=== PATIENT | female | born 1965 | race Caucasian/White ===

== ENCOUNTER 2017-11-19 09:52 | Emergency (ER) | payer OTHER ==
[~2017-11-19] VITALS: Ht 162.6 cm; Wt 56.2 kg
--- NOTE | 2017-11-19 10:10 | NUR ---
DR. PARSONS TALKED TO DR. MORENO REGARDING THE PT.DR. MORENO WILL SEE THE PT IMMEDIALY IN HIS OFFICE.
--- NOTE | 2017-11-19 10:19 | NUR ---
Patient discharged to home in stable conditon. Written and verbal after care instructions given. Patient verbalizes understanding of instructions.Pt understand that she should immediately follow up with dr. cortez, dr. cortez office info provided for pt.
== END 2017-11-19 10:21 | disposition home or self-care (01) ==
LOC: ER 09:52
DX: H57.8 Other specified disorders of eye and adnexa (principal)
CPT/HCPCS: A4663

== ENCOUNTER 2018-11-19 22:07 | Emergency (ER) | payer OTHER ==
[~2018-11-19] VITALS: Ht 165.1 cm; Wt 54.4 kg
--- NOTE | 2018-11-19 22:49 | NUR ---
Dr. Welch at bedside for MSE.
[2018-11-19 23:12] LABS: BASOPHILS # (AUTO) 0.1 K/uL (0.0-8.0); BASOPHILS % (AUTO) 1.2 % (0.0-2.0); EOSINOPHILS # (AUTO) 0.2 K/uL (0.0-0.7); EOSINOPHILS % (AUTO) 3.1 % (0.0-7.0); HEMATOCRIT 38.6 % (31.2-41.9); HEMOGLOBIN 13.1 g/dL (10.9-14.3); LYMPHOCYTES % (AUTO) 30.3 % (20.5-51.5); MEAN CORPUSCULAR HEMOGLOBIN 29.8 uug (24.7-32.8); MEAN CORPUSCULAR HGB CONC 34 g/dL (32.3-35.6); MONOCYTES # (AUTO) 0.4 K/uL (2.0-10.0); MONOCYTES % (AUTO) 5.9 % (0.0-11.0); NEUTROPHILS # (AUTO) 3.9 K/uL (1.8-8.9); NEUTROPHILS % (AUTO) 59.5 % (38.5-71.5); PLATELET COUNT (AUTO) 206 K/uL (179-408); RED BLOOD CELL COUNT(AUTO) 4.38 MIL/uL (3.63-4.92); WHITE BLOOD COUNT (AUTO) 6.6 K/uL (3.8-11.8)
[2018-11-19 23:16] LABS: CREATININE 0.7 mg/dL (0.6-1.3); POTASSIUM 3.7 mmol/L (3.5-5.1)
[2018-11-19] MEDS ORDERED: SWABABLE VALVE TRANSFER SET EA MC ONE (23:26)
[2018-11-19] MEDS ORDERED: IV NORMAL SALINE 250 ML IV ONE (23:26)
[2018-11-19] MEDS ORDERED: NORMAL SALINE FLUSH 10 ML DISP.SYRIN ONE (23:26)
[2018-11-19] MEDS ORDERED: IOHEXOL 350 100 ML INFUS..BTL ONE (23:26)
[2018-11-19 23:27] LABS: ETHANOL < 3 MG/DL (0-0)
--- NOTE | 2018-11-19 23:35 | NUR ---
Pt out of ER for CT.
--- NOTE | 2018-11-20 00:10 | NUR ---
Pt back to ER from CT.
[2018-11-20] MEDS ORDERED: KETOROLAC TROMETHAMINE 30 MG INJ IVP ONE (01:45)
[2018-11-20] MEDS ORDERED: KETOROLAC TROMETHAMINE 30 MG INJ ONE (01:47)
[2018-11-20] MEDS ORDERED: AMOXicillin 250 MG CAPSULE ONE (01:52)
--- NOTE | 2018-11-20 01:55 | NUR ---
Patient discharged to home in stable conditon. Written and verbal after care instructions given. Patient verbalizes understanding of instructions. Pt ambulated out of ER with steady gait, no acute signs of distress, VSS, all belongings taken, IV site discontinued.
[2018-11-20 01:56] VITALS: BP 120/80
[2018-11-20] MEDS ORDERED: AMOXicillin 250 MG CAPSULE PO ONE (02:00)
== END 2018-11-20 01:57 | disposition home or self-care (01) ==
LOC: ER 22:07
DX: R42 Dizziness and giddiness (principal); K08.89 Other specified disorders of teeth and supporting structures
CPT/HCPCS: 36415; 70450; 70496; 70498; 80048; 82962; 85025; 85730; 93005; 96374; 99284; G0480; J1885; Q9967; A4663; J3490; J7050

== ENCOUNTER 2019-02-04 17:18 | Emergency (ER) | payer OTHER ==
[~2019-02-04] VITALS: Ht 160 cm; Wt 54.4 kg
[2019-02-04] MEDS ORDERED: MAG HYDROX/AL HYDROX/SIMETH 30 ML LIQUID UDC PO ONE (18:00)
[2019-02-04] MEDS ORDERED: LIDOCAINE VISCUS 2% 15 ML UDC MM ONE (18:00)
[2019-02-04] MEDS ORDERED: FAMOTIDINE. 20 MG/2 ML VIAL IV ONE (18:00)
[2019-02-04] MEDS ORDERED: MAG HYDROX/AL HYDROX/SIMETH 30 ML LIQUID UDC ONE (18:04)
[2019-02-04] MEDS ORDERED: LIDOCAINE VISCUS 2% 15 ML UDC ONE (18:04)
[2019-02-04] MEDS ORDERED: FAMOTIDINE 20 MG TABLET ONE (18:04)
[2019-02-04 18:09] LABS: BASOPHILS # (AUTO) 0.1 K/uL (0.0-8.0); BASOPHILS % (AUTO) 1.3 % (0.0-2.0); EOSINOPHILS # (AUTO) 0.1 K/uL (0.0-0.7); HEMATOCRIT 37.7 % (31.2-41.9); HEMOGLOBIN 12.7 g/dL (10.9-14.3); LYMPHOCYTES # (AUTO) 1.7 K/uL (20.0-40.0); LYMPHOCYTES % (AUTO) 29.7 % (20.5-51.5); MEAN CORPUSCULAR HEMOGLOBIN 30.2 uug (24.7-32.8); MEAN CORPUSCULAR HGB CONC 34 g/dL (32.3-35.6); MEAN CORPUSCULAR VOLUME 89.6 fL (75.5-95.3); MONOCYTES # (AUTO) 0.6 K/uL (2.0-10.0); MONOCYTES % (AUTO) 9.7 % (0.0-11.0); NEUTROPHILS # (AUTO) 3.3 K/uL (1.8-8.9); NEUTROPHILS % (AUTO) 57.3 % (38.5-71.5); PLATELET COUNT (AUTO) 232 K/uL (179-408); WHITE BLOOD COUNT (AUTO) 5.7 K/uL (3.8-11.8)
--- NOTE | 2019-02-04 18:20 | NUR ---
CT scanner is MD alberta notified. Dr Pena cancelled the CT order for this patient & plan to discharge the patient home without the CT scan.
--- NOTE | 2019-02-04 18:21 | NUR ---
La chiang in ED - 02/04/19 at 1824 by JANET PER SUKHDEEP CORREA, PT IS LEAKING FLUID FROM FIRST PEG SITE.
[2019-02-04 18:23] LABS: BILIRUBIN,DIRECT 0.1 mg/dL (0.0-0.2); BILIRUBIN,TOTAL 0.4 mg/dL (0.2-1.0); CREATININE 0.6 mg/dL (0.6-1.3); POTASSIUM 4.2 mmol/L (3.5-5.1); TOTAL PROTEIN, SERUM 7.2 g/dL (6.4-8.2)
--- NOTE | 2019-02-04 18:24 | NUR ---
Patient discharged to home in stable conditon. Written and verbal after care instructions given to patient. Patient verbalizes understanding of instructions. Patient left ER with brisk steady gait.
[2019-02-04] MEDS ORDERED: FAMOTIDINE 20 MG TABLET PO ONE (18:30)
== END 2019-02-04 18:25 | disposition home or self-care (01) ==
LOC: ER 17:18
DX: R19.7 Diarrhea, unspecified (principal)
CPT/HCPCS: 36415; 83690; 85025; A4663

== ENCOUNTER 2019-09-11 08:35 | Emergency (ER) | payer OTHER ==
[~2019-09-11] VITALS: Ht 160 cm; Wt 56.7 kg
--- NOTE | 2019-09-11 08:52 | NUR ---
Patient ambulated with stable gait. A/Ox4. Speech is clear, speaks in complete sentences. Maltese speaking only but daughter at bedside translating. Patient came for c/o epigastric pain since last night. Patient reports taking a total of 2000mg of acetaminophen in one sitting d/t her pain and discomfort.
--- NOTE | 2019-09-11 08:54 | NUR ---
ERMD at bedside for MSE
[2019-09-11] MEDS ORDERED: KETOROLAC TROMETHAMINE 30 MG INJ IVP ONE (09:00)
[2019-09-11] MEDS ORDERED: IV NORMAL SALINE 1000 ML BAG IV ONE (09:00)
[2019-09-11] MEDS ORDERED: ONDANSETRON 4 MG/2 ML VIAL IV ONE (09:00)
[2019-09-11] MEDS ORDERED: KETOROLAC TROMETHAMINE 30 MG INJ ONE (09:10)
[2019-09-11] MEDS ORDERED: ONDANSETRON 4 MG/2 ML VIAL ONE (09:10)
[2019-09-11 09:20] LABS: BASOPHILS # (AUTO) 0.1 K/uL (0.0-8.0); BASOPHILS % (AUTO) 1.4 % (0.0-2.0); EOSINOPHILS # (AUTO) 0.1 K/uL (0.0-0.7); EOSINOPHILS % (AUTO) 1.3 % (0.0-7.0); HEMATOCRIT 39.8 % (31.2-41.9); HEMOGLOBIN 13.4 g/dL (10.9-14.3); LYMPHOCYTES # (AUTO) 1.3 K/uL (20.0-40.0); LYMPHOCYTES % (AUTO) 26.7 % (20.5-51.5); MEAN CORPUSCULAR HEMOGLOBIN 30.6 uug (24.7-32.8); MEAN CORPUSCULAR HGB CONC 34 g/dL (32.3-35.6); MEAN CORPUSCULAR VOLUME 90.9 fL (75.5-95.3); MONOCYTES # (AUTO) 0.4 K/uL (2.0-10.0); MONOCYTES % (AUTO) 7.6 % (0.0-11.0); NEUTROPHILS # (AUTO) 3.2 K/uL (1.8-8.9); PLATELET COUNT (AUTO) 221 K/uL (179-408); RED BLOOD CELL COUNT(AUTO) 4.37 MIL/uL (3.63-4.92)
--- NOTE | 2019-09-11 09:23 | NUR ---
Liliam US tech, at bedside for scan
[2019-09-11 09:26] LABS: CREATININE 0.7 mg/dL (0.6-1.3); POTASSIUM 3.9 mmol/L (3.5-5.1)
[2019-09-11 09:32] LABS: BILIRUBIN,TOTAL 0.5 mg/dL (0.2-1.0); TOTAL PROTEIN, SERUM 7.2 g/dL (6.4-8.2)
[2019-09-11 09:35] LABS: BILIRUBIN,DIRECT 0.1 mg/dL (0.0-0.2)
--- NOTE | 2019-09-11 09:58 | NUR ---
Patient taken down to CT in stable condition.
[2019-09-11 10:08] LABS: *BILIRUBIN,URIN NEGATIVE (NEGATIVE); *BLOOD, URINE NEGATIVE (NEGATIVE); *CLARITY,URINE CLEAR (CLEAR); *COLOR,URINE LIGHT YELLOW (YELLOW); *KETONES,URINE NEGATIVE (NEGATIVE); *UROBILINOGEN,URINE 0.2 E.U./dl (NORMAL); LEUKOCYTE ESTERASE ,URINE NEGATIVE (NEGATIVE); NITRITE, URINE NEGATIVE (NEGATIVE); PH,URINE 6.5 (5.0-8.0); UGLUCOSE NEGATIVE (NEGATIVE)
[2019-09-11 11:15] VITALS: BP 118/77
--- NOTE | 2019-09-11 11:15 | NUR ---
IV removed. Catheter intact and site benign. Pressure and 4x4 gauze applied to site. No bleeding noted. Patient discharged to home in stable conditon. Written and verbal after care instructions given. Patient verbalizes understanding of instructions. Patient ambulated with stable gait.
== END 2019-09-11 11:16 | disposition home or self-care (01) ==
LOC: ER 08:35
DX: K52.9 Noninfective gastroenteritis and colitis, unspecified (principal)
CPT/HCPCS: 36415; 71045; 74176; 76705; 80048; 80076; 81001; 83690; 84484; 85025; 85730; 93005; 96361; 96374; 96375; 99285; G0480; J1885; J2405; 70030-TC; A4663; J7030

== ENCOUNTER 2020-08-01 15:58 | Emergency (ER) | payer OTHER ==
[~2020-08-01] VITALS: Ht 157.5 cm; Wt 54.4 kg
--- NOTE | 2020-08-01 16:24 | NUR ---
No Bed avail in Er, pt is being seen in the hallway by Dr Banegas.
--- NOTE | 2020-08-01 16:59 | NUR ---
Patient discharged to home in stable condition. Written and verbal after care instructions given. Patient verbalizes understanding of instructions. Stressed follow up or return to ER for worsening s/s.
[2020-08-01 17:00] VITALS: BP 122/58
== END 2020-08-01 17:01 | disposition home or self-care (01) ==
LOC: ER 16:00
DX: R51.9 Headache, unspecified (principal); G93.89 Other specified disorders of brain; Z86.73 Personal history of transient ischemic attack (TIA), and cerebral infarction without residual deficits; Z86.19 Personal history of other infectious and parasitic diseases
CPT/HCPCS: 70450; A4663

== ENCOUNTER 2020-10-14 12:24 | Emergency (ER) | payer BC, OTHER ==
[~2020-10-14] VITALS: Ht 160 cm; Wt 52.2 kg
[2020-10-14 13:10] LABS: ABG BASE EXCESS 0.6 mmol/L; ABG PCO2 34.9 mmHg (35.0-45.0); ABG PH 7.456 (7.350-7.450); ABG PO2 66.7 mmHg (75.0-100.0); ABG SITE LEFT RADIAL; ABG TOTAL HEMOGLOBIN 13.5 G/dL (12.0-16.0); COHb 1.4 % (0.5-1.5); MetHb 0.2 % (0.0-1.5); O2Hb 92.2 % (94.0-97.0)
[2020-10-14 13:13] LABS: BASOPHILS # (AUTO) 0.1 K/uL (0.0-8.0); BASOPHILS % (AUTO) 1.9 % (0.0-2.0); EOSINOPHILS % (AUTO) 0.3 % (0.0-7.0); HEMATOCRIT 39.3 % (31.2-41.9); HEMOGLOBIN 13.4 g/dL (10.9-14.3); LYMPHOCYTES # (AUTO) 0.6 K/uL (20.0-40.0); LYMPHOCYTES % (AUTO) 15.4 % (20.5-51.5); MEAN CORPUSCULAR HEMOGLOBIN 30.9 uug (24.7-32.8); MEAN CORPUSCULAR HGB CONC 34 g/dL (32.3-35.6); MEAN CORPUSCULAR VOLUME 90.8 fL (75.5-95.3); MONOCYTES # (AUTO) 0.4 K/uL (2.0-10.0); MONOCYTES % (AUTO) 11.2 % (0.0-11.0); NEUTROPHILS # (AUTO) 2.8 K/uL (1.8-8.9); NEUTROPHILS % (AUTO) 71.2 % (38.5-71.5); PLATELET COUNT (AUTO) 149 K/uL (179-408); RED BLOOD CELL COUNT(AUTO) 4.33 MIL/uL (3.63-4.92); WHITE BLOOD COUNT (AUTO) 3.9 K/uL (3.8-11.8)
[2020-10-14] MEDS ORDERED: CEFTRIAXONE 1 G in IV DEXTROSE 5% 50 ML IV ONE (13:15)
[2020-10-14] MEDS ORDERED: AZITHROMYCIN IV 500 MG in IV DEXTROSE 5% 250 ML IV ONE (13:15)
[2020-10-14 13:25] LABS: CREATININE 0.6 mg/dL (0.6-1.3); POTASSIUM 3.5 mmol/L (3.5-5.1)
[2020-10-14 13:25] LABS: *BILIRUBIN,URIN NEGATIVE (NEGATIVE); *BLOOD, URINE NEGATIVE (NEGATIVE); *CLARITY,URINE CLEAR (CLEAR); *COLOR,URINE LIGHT YELLOW (YELLOW); *KETONES,URINE NEGATIVE (NEGATIVE); *UROBILINOGEN,URINE 0.2 E.U./dl (NORMAL); LEUKOCYTE ESTERASE ,URINE NEGATIVE (NEGATIVE); NITRITE, URINE NEGATIVE (NEGATIVE); PH,URINE 6.5 (5.0-8.0); UGLUCOSE NEGATIVE (NEGATIVE)
[2020-10-14 13:45] LABS: BILIRUBIN,TOTAL 0.4 mg/dL (0.2-1.0); TOTAL PROTEIN, SERUM 7.2 g/dL (6.4-8.2)
[2020-10-14] MEDS ORDERED: CEFTRIAXONE /D5W 50ML IVPB **ER PYXIS IV ONE (14:19)
[2020-10-14] MEDS ORDERED: AZITHROMYCIN 500MG/ D5W 250ML IVPB **ER PYXIS ONLY IV ONE (14:20)
[2020-10-14] MEDS ORDERED: DOXY-226 PO (15:48)
[2020-10-14] MEDS ORDERED: DEXA6TAB PO (15:48)
[2020-10-14] MEDS ORDERED: PROM5SYR PO (15:48)
[2020-10-14] MEDS ORDERED: ZINC220C6 PO (15:48)
--- NOTE | 2020-10-14 15:54 | NUR ---
Removed IV intact, site okay, bandaged. Gave Pt RX info and d/c instructions, pt verbalized understanding.
[2020-10-14 16:52] VITALS: BP 109/61
== END 2020-10-14 15:58 | disposition home or self-care (01) ==
LOC: ER 12:24
DX: U07.1 COVID-19 (principal); J12.82 Pneumonia due to coronavirus disease 2019; Z86.73 Personal history of transient ischemic attack (TIA), and cerebral infarction without residual deficits; Z86.19 Personal history of other infectious and parasitic diseases; R00.0 Tachycardia, unspecified; R06.02 Shortness of breath
CPT/HCPCS: 36415; 36600; 71045; 80053; 81003; 82550; 82728; 83605; 83615; 83880; 84145; 84484; 85025; 85379; 85385; 85730; 86140; 87040 ×2; 87400; 87426; 93005; 96365; 96367; 99285; J0456; J0696; U0003; 70030-TC; A4663; J7030

== ENCOUNTER 2021-01-18 08:03 | Emergency (ER) | payer OTHER ==
[~2021-01-18] VITALS: Ht 160 cm; Wt 54.4 kg
[~2021-01-18 08:03] MED LIST: DEXA6TAB PO; DOXY-226 PO; PROM5SYR PO; ZINC220C6 PO
--- NOTE | 2021-01-18 08:32 | NUR ---
PT IS IN ROOM #2A. DR JAUREGUI EVALUATED THE PT.
[2021-01-18 08:52] LABS: *BILIRUBIN,URIN NEGATIVE (NEGATIVE); *BLOOD, URINE NEGATIVE (NEGATIVE); *CLARITY,URINE CLEAR (CLEAR); *COLOR,URINE YELLOW (YELLOW); *KETONES,URINE NEGATIVE (NEGATIVE); *UROBILINOGEN,URINE 0.2 E.U./dl (NORMAL); LEUKOCYTE ESTERASE ,URINE NEGATIVE (NEGATIVE); NITRITE, URINE NEGATIVE (NEGATIVE); PH,URINE 5.5 (5.0-8.0); UGLUCOSE NEGATIVE (NEGATIVE)
[2021-01-18 08:54] LABS: HEMATOCRIT 38.5 % (31.2-41.9); PLATELET COUNT (AUTO) 195 K/uL (179-408)
[2021-01-18 08:59] LABS: CREATININE 0.7 mg/dL (0.6-1.3); POTASSIUM 3.9 mmol/L (3.5-5.1)
[2021-01-18 09:04] LABS: BILIRUBIN,DIRECT 0.1 mg/dL (0.0-0.2); BILIRUBIN,TOTAL 0.3 mg/dL (0.2-1.0); TOTAL PROTEIN, SERUM 7.1 g/dL (6.4-8.2)
[2021-01-18] MEDS ORDERED: IV NORMAL SALINE 250 ML IV ONE (09:39)
[2021-01-18] MEDS ORDERED: IOHEXOL 300MG/ML 100 ML INFUS..BTL ONE (09:39)
[2021-01-18] MEDS ORDERED: SWABABLE VALVE TRANSFER SET EA MC ONE (09:39)
[2021-01-18] MEDS ORDERED: IBUP-1955 PO (10:55)
--- NOTE | 2021-01-18 11:06 | NUR ---
PT WAS D/C'd TO HOME. D/C INSTRUCTIONS GIVEN TO THE PT BY DR JAUREGUI.
[2021-01-18 11:07] VITALS: BP 125/72
== END 2021-01-18 11:08 | disposition home or self-care (01) ==
LOC: ER 08:05
DX: N28.1 Cyst of kidney, acquired (principal); D25.9 Leiomyoma of uterus, unspecified; Z86.73 Personal history of transient ischemic attack (TIA), and cerebral infarction without residual deficits; Z86.19 Personal history of other infectious and parasitic diseases; Z78.0 Asymptomatic menopausal state
CPT/HCPCS: 36415; 74177; 76705; 76856; 80048; 80076; 81003; 83690; 84484; 84702; 85025; 93005; 99285; Q9967; 70030-TC; A4663; J7030; J7050

== ENCOUNTER 2021-07-18 13:30 | Emergency (ER) | payer OTHER ==
[~2021-07-18] VITALS: Ht 160 cm; Wt 54.4 kg
[~2021-07-18 13:30] MED LIST changes: +IBUP-1955 PO
[2021-07-18] MEDS ORDERED: METOCLOPRAMIDE HCL 10 MG/2 ML VIAL IV ONE (14:15)
[2021-07-18] MEDS ORDERED: diphenhydrAMINE 50 MG/1 ML VIAL IV ONE (14:15)
[2021-07-18] MEDS ORDERED: IV NORMAL SALINE 100 ML BAG IV ONE (14:15)
[2021-07-18 14:27] LABS: HEMATOCRIT 38.3 % (31.2-41.9); MEAN CORPUSCULAR HEMOGLOBIN 31.4 uug (24.7-32.8); MEAN CORPUSCULAR VOLUME 92.5 fL (75.5-95.3); PLATELET COUNT (AUTO) 206 K/uL (179-408)
[2021-07-18 14:30] LABS: CREATININE 0.7 mg/dL (0.6-1.3); POTASSIUM 3.3 mmol/L (3.5-5.1)
[2021-07-18 14:36] LABS: BILIRUBIN,TOTAL 0.6 mg/dL (0.2-1.0); TOTAL PROTEIN, SERUM 7.6 g/dL (6.4-8.2)
[2021-07-18] MEDS ORDERED: diphenhydrAMINE 50 MG/1 ML VIAL ONE (14:36)
[2021-07-18] MEDS ORDERED: METOCLOPRAMIDE HCL 10 MG/2 ML VIAL ONE (14:36)
--- NOTE | 2021-07-18 16:14 | NUR ---
Patient discharged to home in stable condition. Written and verbal after care instructions given. Patient verbalizes understanding of instructions. Stressed follow up or return to ER for worsening s/s.PT SAYS SHE FEELS BETTER.
[2021-07-18 16:15] VITALS: BP 121/77
== END 2021-07-18 16:16 | disposition home or self-care (01) ==
LOC: ER 13:30
DX: R51.9 Headache, unspecified (principal)
CPT/HCPCS: 36415; 70450; 80053; 85025; 96361; 96374; 96375; 99284; J1200; J2765; A4663; J7030

== ENCOUNTER 2021-11-13 17:07 | Emergency (ER) | payer OTHER ==
[~2021-11-13] VITALS: Ht 160 cm; Wt 54.4 kg
--- NOTE | 2021-11-13 17:21 | NUR ---
Patient discharged to home in stable condition with brisk steady gait. Written and verbal after care instructions given to patient. Patient verbalized understanding and compliance of instructions. Stressed follow up with primary doctor and opthalmologist or return to ER for worsening s/s.
== END 2021-11-13 17:21 | disposition home or self-care (01) ==
LOC: ER 17:13
DX: H11.32 Conjunctival hemorrhage, left eye (principal); Z86.73 Personal history of transient ischemic attack (TIA), and cerebral infarction without residual deficits; Z86.19 Personal history of other infectious and parasitic diseases
CPT/HCPCS: A4663

== ENCOUNTER 2022-04-10 11:37 | Emergency (ER) | payer OTHER ==
[~2022-04-10] VITALS: Ht 152.4 cm; Wt 54.0 kg
[2022-04-10] MEDS ORDERED: SILVER SULFADIAZINE 1% CREAM 50 GM TP ONE ×2 (12:12→12:15)
[2022-04-10] MEDS ORDERED: TDAP DIPH,PERTUSS,TET VAC/PF 0.5 ML DISP.SYRIN IM ONE ×2 (12:15→12:22)
--- NOTE | 2022-04-10 12:32 | NUR ---
tetanus shot given, wound clean
--- NOTE | 2022-04-10 12:32 | NUR ---
tetanus shot given, wound cleaned and silvadene applied, dressed with curlix and secured with tape. pt tolerate well. Patient discharged to home in stable condition. Written and verbal after care instructions given. Patient verbalizes understanding of instructions. Stressed follow up or return to ER for worsening s/s.
== END 2022-04-10 12:34 | disposition home or self-care (01) ==
LOC: ER 11:38
DX: T23.271A Burn of second degree of right wrist, initial encounter (principal); X10.2XXA Contact with fats and cooking oils, initial encounter; Y92.89 Other specified places as the place of occurrence of the external cause; Z86.73 Personal history of transient ischemic attack (TIA), and cerebral infarction without residual deficits; Z86.19 Personal history of other infectious and parasitic diseases
CPT/HCPCS: 16020; 90715; A4663

== ENCOUNTER 2022-05-18 07:24 | Emergency (ER) | payer OTHER ==
[~2022-05-18] VITALS: Ht 160 cm; Wt 54.4 kg
[2022-05-18] MEDS ORDERED: FAMOTIDINE 20 MG TABLET PO ONE (07:45)
[2022-05-18] MEDS ORDERED: LIDOCAINE VISCUS 2% 15 ML UDC MM ONE (07:45)
[2022-05-18] MEDS ORDERED: MAG HYDROX/AL HYDROX/SIMETH 30 ML LIQUID UDC PO ONE (07:45)
[2022-05-18] MEDS ORDERED: diphenhydrAMINE 25 MG CAP PO ONE ×2 (07:45→08:42)
[2022-05-18] MEDS ORDERED: PROCHLORPERAZINE EDISYLATE 10 MG/2 ML VIAL IV ONE (07:45)
--- NOTE | 2022-05-18 08:15 | NUR ---
Pt. walked into ER c/o /10 abdominal pain and dry heaving for 2 days. Denies nausea and vomiting. Pt reports unable to eat much. No shortness of breath. MD evaluated patient at bedside.
[2022-05-18 08:23] LABS: HEMATOCRIT 39.3 % (31.2-41.9); MEAN CORPUSCULAR HEMOGLOBIN 31.7 uug (24.7-32.8); MEAN CORPUSCULAR VOLUME 91.8 fL (75.5-95.3); PLATELET COUNT (AUTO) 222 K/uL (179-408)
[2022-05-18 08:32] LABS: CARBON DIOXIDE 30 mmol/L (21-32); CHLORIDE 105 mmol/L (98-107); CREATININE 0.8 mg/dL (0.6-1.3); GLUCOSE 94 mg/dL (74-106); UREA NITROGEN, BLOOD 16 mg/dL (7-18)
[2022-05-18 08:36] LABS: ALANINE AMINOTRANSFERASE 30 U/L (14-59); ALKALINE PHOSPHATASE 62 U/L (50-136); ASPARTATE AMINOTRANSFERASE 27 U/L (15-37); BILIRUBIN,DIRECT < 0.1 mg/dL (0.0-0.2); BILIRUBIN,TOTAL 0.4 mg/dL (0.2-1.0); LIPASE 84 U/L (73-393); TOTAL PROTEIN, SERUM 7.5 g/dL (6.4-8.2)
[2022-05-18] MEDS ORDERED: FAMOTIDINE 20 MG TABLET ONE (08:41)
[2022-05-18] MEDS ORDERED: LIDOCAINE VISCUS 2% 15 ML UDC ONE (08:42)
[2022-05-18] MEDS ORDERED: MAG HYDROX/AL HYDROX/SIMETH 30 ML LIQUID UDC ONE (08:42)
[2022-05-18] MEDS ORDERED: PROCHLORPERAZINE EDISYLATE 10 MG/2 ML VIAL ONE (08:42)
[2022-05-18 09:02] LABS: *URINE HCG, QUAL NEG (NEGATIVE)
[2022-05-18 09:05] LABS: *BILIRUBIN,URIN NEGATIVE (NEGATIVE); *BLOOD, URINE NEGATIVE (NEGATIVE); *CLARITY,URINE CLEAR (CLEAR); *COLOR,URINE LIGHT YELLOW (YELLOW); *KETONES,URINE NEGATIVE (NEGATIVE); *UROBILINOGEN,URINE 0.2 E.U./dl (NORMAL); LEUKOCYTE ESTERASE ,URINE NEGATIVE (NEGATIVE); NITRITE, URINE NEGATIVE (NEGATIVE); UGLUCOSE NEGATIVE (NEGATIVE)
[2022-05-18] MEDS ORDERED: FAMO20TA8 PO (09:32)
[2022-05-18 09:50] VITALS: BP 100/70
== END 2022-05-18 09:53 | disposition home or self-care (01) ==
LOC: ER 07:27
DX: R10.13 Epigastric pain (principal); T39.315A Adverse effect of propionic acid derivatives, initial encounter; Y92.89 Other specified places as the place of occurrence of the external cause; R51.9 Headache, unspecified; B19.10 Unspecified viral hepatitis B without hepatic coma; Z86.73 Personal history of transient ischemic attack (TIA), and cerebral infarction without residual deficits
CPT/HCPCS: 99284; 96374; 80076; 80048; 81003; 84703; 83690; 85025; 36415; Q0163; J0780; A4663

== ENCOUNTER 2024-10-26 04:05 | Emergency (ER) | payer OTHER ==
[~2024-10-26] VITALS: Ht 160 cm; Wt 53.1 kg
[~2024-10-26 04:05] MED LIST changes: +FAMO20TA8 PO
[2024-10-26] MEDS ORDERED: GUAIFENESIN/CODEINE 5 ML LIQUID UDC ONE (04:44)
[2024-10-26] MEDS: GUAIFENESIN/CODEINE 5 ML LIQUID UDC PO ONE (04:52)
[2024-10-26 05:00] VITALS: O2SAT 96
[2024-10-26] MEDS ORDERED: ALBUTEROL SULFATE 2.5 MG/3 ML NEBU ONE (05:07)
[2024-10-26 05:15] VITALS: O2SAT 99
[2024-10-26] MEDS: ALBUTEROL SULFATE 2.5 MG/3 ML NEBU NEB ONE (05:18)
[2024-10-26] MEDS ORDERED: BENZ-13 PO (05:30)
[2024-10-26] MEDS ORDERED: AZIT250T PO (05:30)
[2024-10-26] MEDS ORDERED: PRED20TA PO (05:30)
[2024-10-26] MEDS: IV NS 1000 ML 1,000 ML IV ONE (05:57)
[2024-10-26 06:11] LABS: BASOPHILS # (AUTO) 0.1 K/UL (0.0-0.2); BASOPHILS % (AUTO) 1.2 % (0.0-2.0); EOSINOPHILS # (AUTO) 0.2 K/uL (0.0-0.7); EOSINOPHILS % (AUTO) 5.2 % (0.0-7.0); HEMATOCRIT 40.6 % (31.2-41.9); HEMOGLOBIN 13.7 g/dL (10.9-14.3); LYMPHOCYTES # (AUTO) 1.2 K/uL (0.8-4.8); LYMPHOCYTES % (AUTO) 26.8 % (20.5-51.5); MEAN CORPUSCULAR HEMOGLOBIN 30.8 uug (24.7-32.8); MEAN CORPUSCULAR HGB CONC 34 g/dL (32.3-35.6); MEAN CORPUSCULAR VOLUME 91.4 fL (75.5-95.3); MONOCYTES # (AUTO) 0.6 K/uL (0.1-1.30); MONOCYTES % (AUTO) 12.7 % (0.0-11.0); NEUTROPHILS # (AUTO) 2.5 K/uL (1.8-8.9); NEUTROPHILS % (AUTO) 54.1 % (38.5-71.5); PLATELET COUNT (AUTO) 193 K/uL (179-408); RED BLOOD CELL COUNT(AUTO) 4.45 MIL/uL (3.63-4.92); RED CELL DISTRIBUTION WIDTH 12.4 % (12.3-17.7); WHITE BLOOD COUNT (AUTO) 4.6 K/uL (3.8-11.8)
[2024-10-26 06:21] LABS: CALCIUM 8.3 mg/dL (8.5-10.1); CREATININE 0.6 mg/dL (0.6-1.3); POTASSIUM 3.3 mmol/L (3.5-5.1)
[2024-10-26 06:23] LABS: DIFFERENTIAL COMMENT 1
[2024-10-26 06:27] LABS: ALBUMIN 3.4 g/dL (3.4-5.0); BILIRUBIN,TOTAL 0.4 mg/dL (0.2-1.0); TOTAL PROTEIN, SERUM 7.2 g/dL (6.4-8.2)
[2024-10-26] MEDS ORDERED: POTASSIUM CHLORIDE 20 MEQ TAB.PRT.SR PO ONE (06:45)
[2024-10-26 06:47] VITALS: BP 148/89; TEMP 98; O2SAT 99
== END 2024-10-26 06:45 | disposition home or self-care (01) ==
LOC: ER 04:05
DX: J20.9 Acute bronchitis, unspecified (principal); Z79.52 Long term (current) use of systemic steroids; Z86.73 Personal history of transient ischemic attack (TIA), and cerebral infarction without residual deficits; Z20.822 Contact with and (suspected) exposure to COVID-19
CPT/HCPCS: 99284; 96360; 71045; 87426; 87804 ×2; 80053; 85025; 86403; 87070; 36415; 94640; J7040; A4606; A4663

== ENCOUNTER 2025-03-31 19:48 | Emergency (ER) | payer OTHER ==
[~2025-03-31] VITALS: Ht 160 cm; Wt 54.4 kg
[~2025-03-31 19:48] MED LIST changes: +AZIT250T PO; +BENZ-13 PO; +PRED20TA PO
[2025-03-31 21:50] VITALS: BP 120/81
[2025-03-31 21:53] LABS: PLATELET COUNT (AUTO) 220 K/uL (179-408); RED BLOOD CELL COUNT(AUTO) 3.80 MIL/uL (3.63-4.92); RED CELL DISTRIBUTION WIDTH 13.3 % (12.3-17.7); WHITE BLOOD COUNT (AUTO) 4.3 K/uL (3.8-11.8)
[2025-03-31 22:01] LABS: CREATININE 0.7 mg/dL (0.6-1.3); SODIUM SERUM 139.0 mmol/L (136-145); UREA NITROGEN, BLOOD 17.0 mg/dL (7-18)
[2025-03-31 22:07] LABS: ASPARTATE AMINOTRANSFERASE 22.0 U/L (15-37); TOTAL PROTEIN, SERUM 7.0 g/dL (6.4-8.2)
[2025-03-31 22:19] LABS: *BILIRUBIN,URIN NEGATIVE (NEGATIVE); *BLOOD, URINE NEGATIVE (NEGATIVE); *CLARITY,URINE CLOUDY (CLEAR); *COLOR,URINE LIGHT YELLOW (YELLOW); *KETONES,URINE NEGATIVE (NEGATIVE); *PROTEIN,URINE NEGATIVE (NEGATIVE); *UROBILINOGEN,URINE 0.2 E.U./dl (NORMAL); LEUKOCYTE ESTERASE ,URINE TRACE (NEGATIVE); NITRITE, URINE NEGATIVE (NEGATIVE); UGLUCOSE NEGATIVE (NEGATIVE)
[2025-03-31 22:35] LABS: SQUAMOUS EPITHELIAL CELL,UR FEW /HPF (NONE SEEN); URINE AMORPHOUS PHOSPHATES MANY /HPF
[2025-03-31] MEDS ORDERED: FOSFOMYCIN TROMETHAMINE 3 GM PACKET ONE (22:43)
[2025-03-31] MEDS: FOSFOMYCIN TROMETHAMINE 3 GM PACKET PO ONE (22:46)
[2025-03-31 22:57] VITALS: BP 122/79; O2SAT 99
== END 2025-03-31 22:48 | disposition home or self-care (01) ==
LOC: ER 19:51
DX: R60.0 Localized edema (principal); R07.9 Chest pain, unspecified; Z79.52 Long term (current) use of systemic steroids; Z86.73 Personal history of transient ischemic attack (TIA), and cerebral infarction without residual deficits; Z87.19 Personal history of other diseases of the digestive system
CPT/HCPCS: 36415; 71045; 85025; 85730; 87086; A4606; A4663